=== PATIENT | female | born 1995 | race Caucasian/White ===

== ENCOUNTER 2021-11-08 03:48 | Inpatient (IN) | payer MEDICAID, OTHER ==
[~2021-11-08] VITALS: Ht 160 cm; Wt 72.6 kg
[2021-11-08] MEDS ORDERED: LIDOCAINE HCL 1% 20ML VIAL (Pyxis) INJ INFIL SCH (07:45)
[2021-11-08] MEDS ORDERED: DEXT 5%/LACTATED RINGERS 1,000 ML IV SCH (07:45)
[2021-11-08] MEDS ORDERED: MISOPROSTOL 100MCG TABLET VG SCH (07:45)
[2021-11-08] MEDS ORDERED: RHO(D) IMMUNE GLOBULIN 300 MCG/SYR IM ONE (07:45)
[2021-11-08] MEDS ORDERED: LIDOCAINE HCL 2%/EPINEPHRINE 1:100,000 20 ML VIAL INFIL ONE (08:04)
[2021-11-08] MEDS ORDERED: PENICILLIN G POTASSIUM 5 MMU in DEXT 5% WATER 100 ML IV SCH (08:30)
[2021-11-08 09:38] LABS: BASOPHILS % 0.4 % (0.0-2.0); EOSINOPHILS % 1.3 % (0.0-5.0); HEMATOCRIT. 32.8 % (36.0-48.0); MEAN CORPUSCULAR HEMOGLOBIN 30.6 pg (28.0-32.0); MEAN CORPUSCULAR VOLUME 91.2 fL (81.0-99.0); MEAN PLATELET VOLUME 9.5 fl (7.4-10.4); MONOCYTES % 6.8 % (2.0-8.0); NEUTROPHILS % 78.5 % (40.0-76.0); PLATELET 249 x1000/uL (130-400); RED CELL DISTRIBUTION WIDTH 15.8 % (11.6-14.6)
[2021-11-08 09:50] LABS: INR 0.9; PARTIAL THROMBOPLASTIN TIME 27.6 sec (23.4-31.0); PROTHROMBIN TIME 9.5 sec (9.6-11.0)
[2021-11-08] MEDS: LACTATED RINGERS 1,000 ML IV SCH ×2 (10:32→18:24)
[2021-11-08] MEDS: OXYTOCIN 30 UNITS/500ML NS PMX 500 ML IV SCH (10:35)
[2021-11-08 11:10] LABS: CLARITY URINE CLEAR (CLEAR); COLOR URINE YELLOW (YELLOW); KETONES URINE NEGATIVE (NEGATIVE); LEUKOCYTE ESTERASE URINE 1+ (NEGATIVE); NITRITE URINE NEGATIVE (NEGATIVE); OCCULT BLOOD URINE 3+ (NEGATIVE); PH URINE 7.5 (4.5-8.0); PROTEIN URINE TRACE (NEGATIVE); UROBILINOGEN URINE 0.2 E.U./dL (0.2-1.0)
[2021-11-08 11:25] LABS: HEPATITIS B SURFACE ANTIGEN NEGATIVE
[2021-11-08 11:32] LABS: *AMPHETAMINES SCREEN URINE NEGATIVE (NEGATIVE); *BARBITURATES SCREEN URINE NEGATIVE (NEGATIVE); *BENZODIAZEPINES SCREEN URINE NEGATIVE (NEGATIVE); *COCAINE SCREEN URINE NEGATIVE (NEGATIVE); CANNABINOID URINE SCREEN NEGATIVE (NEGATIVE); METHADONE URINE SCREEN NEGATIVE (NEGATIVE); OPIATES URINE SCREEN NEGATIVE (NEGATIVE); PHENCYCLIDINE URINE SCREEN NEGATIVE (NEGATIVE)
[2021-11-08] MEDS ORDERED: ONDANSETRON HCL 4MG/2ML INJ IV PRN (15:00)
[2021-11-08] MEDS ORDERED: ROPIVACAINE HCL/PF EPIDURAL 200 ML EPI SCH (15:00)
[2021-11-08] MEDS ORDERED: METOCLOPRAMIDE HCL 10MG/2ML VIAL IV PRN (15:00)
[2021-11-08] MEDS: PENICILLIN G POTASSIUM 2.5 MMU in DEXTROSE 5% WATER 50 ML IV SCH ×2 (15:20→20:07)
[2021-11-08] MEDS: BUTORPHANOL TARTRATE 2 MG/ML VIAL IM PRN ×2 (16:01→20:32)
[2021-11-09] MEDS: PENICILLIN G POTASSIUM 2.5 MMU in DEXTROSE 5% WATER 50 ML IV SCH (00:05)
[2021-11-09] MEDS: LACTATED RINGERS 1,000 ML IV SCH (00:28)
[2021-11-09] MEDS ORDERED: FENTANYL CITRATE/PF 50MCG/ML 2ML VIAL ONE (00:55)
[2021-11-09] MEDS: BUTORPHANOL TARTRATE 2 MG/ML VIAL IM PRN (01:38)
[2021-11-09] MEDS ORDERED: RHO(D) IMMUNE GLOBULIN 300 MCG/SYR IM PRN (03:30)
[2021-11-09] MEDS ORDERED: OXYTOCIN 30 UNITS/500ML NS PMX 500 ML IV SCH (03:30)
[2021-11-09] MEDS ORDERED: METHYLERGONOVINE MALEATE 0.2 MG/ML IM PRN (03:30)
[2021-11-09] MEDS ORDERED: IBUPROFEN 400MG TABLET PO PRN (03:30)
[2021-11-09] MEDS: IBUPROFEN 800MG TABLET PO PRN ×3 (04:42→17:57)
[2021-11-09 06:00] VITALS: BP 120/63
[2021-11-09] MEDS: OXYTOCIN 30 UNITS/500ML NS PMX 500 ML IV SCH (06:06)
[2021-11-09 08:00] VITALS: BP 101/64
[2021-11-09] MEDS: PRENATAL VIT/FE FUMARATE/FA TABLET PO SCH (09:01)
[2021-11-09] MEDS: LANOLIN OINT 7GM TUBE TOP PRN ×2 (09:01→09:02)
[2021-11-09 16:00] VITALS: BP 97/52
[2021-11-09 20:00] VITALS: BP 95/58
[2021-11-10] MEDS: IBUPROFEN 800MG TABLET PO PRN ×3 (01:03→19:39)
[2021-11-10 04:00] VITALS: BP 106/69
[2021-11-10 07:15] LABS: BASOPHILS % 0.5 % (0.0-2.0); HEMATOCRIT. 27.8 % (36.0-48.0); HEMOGLOBIN. 9.1 g/dL (12.0-16.0); LYMPHOCYTES % 22.8 % (20.0-50.0); MEAN CORPUSCULAR HEMOGLOBIN 30.7 pg (28.0-32.0); MEAN CORPUSCULAR VOLUME 94.2 fL (81.0-99.0); MEAN PLATELET VOLUME 9.7 fl (7.4-10.4); NEUTROPHILS % 66.7 % (40.0-76.0); PLATELET 224 x1000/uL (130-400); RED BLOOD CELL COUNT 2.96 mill/uL (4.2-5.4); RED CELL DISTRIBUTION WIDTH 16.7 % (11.6-14.6)
[2021-11-10 08:00] VITALS: BP 98/61
[2021-11-10] MEDS: PRENATAL VIT/FE FUMARATE/FA TABLET PO SCH (08:23)
[2021-11-10 16:00] VITALS: BP 104/62
[2021-11-10 20:00] VITALS: BP 98/58
[2021-11-11 04:00] VITALS: BP 101/60
[2021-11-11 08:00] VITALS: BP 108/65
== END 2021-11-11 11:55 | disposition home or self-care (01) | DRG 560 ==
LOC: OBSVTOIN 03:48 → 8 EST LDRP 03:48 → 8EST 11-09 05:27
PROVIDERS: ADMIT Obstetrics & Gynecology; ATTEND Obstetrics & Gynecology
PROC: 10E0XZZ Delivery of Products of Conception, External Approach (ICD-10-PCS; principal; 2021-11-09)
PROC: 0HQ9XZZ Repair Perineum Skin, External Approach (ICD-10-PCS; 2021-11-09)
PROC: 3E0R3BZ Introduction of Anesthetic Agent into Spinal Canal, Percutaneous Approach (ICD-10-PCS; 2021-11-09)
PROC: 00HU33Z Insertion of Infusion Device into Spinal Canal, Percutaneous Approach (ICD-10-PCS; 2021-11-09)
DX: O41.03X0 Oligohydramnios, third trimester, not applicable or unspecified (principal); Z37.0 Single live birth; F10.20 Alcohol dependence, uncomplicated; O46.93 Antepartum hemorrhage, unspecified, third trimester; Z20.822 Contact with and (suspected) exposure to COVID-19; O70.0 First degree perineal laceration during delivery; Z3A.38 38 weeks gestation of pregnancy
CPT/HCPCS: 36415; 76805; 76818; 80305; 81003; 85025; 86592; 86703; 86762; 86850; 86900; 87340; 87426; 99281; J0595; J2540; J2795; J3010; J3490; J7060; J7120; J7121; A4315; J2590